=== PATIENT | male | born 1985 | race African-American/Black ===

== ENCOUNTER 2016-07-08 11:45 | Emergency (ER) | payer MEDICAID ==
[2016-07-08 11:56] VITALS: BP 144/92
[2016-07-08] MEDS ORDERED: IBUPROFEN 600 MG TABLET PO ONE (12:02)
--- NOTE | 2016-07-08 12:02 | ER Document Report ---
ED Medical Screen (RME) - General Stated Complaint: TOOTH PAIN Time seen by provider: 12:01 Mode of Arrival: Wheelchair Information source: Patient Notes: 31-year-old male presents to ED for left lower jaw tooth pain for the last 3 days. He states she's been taken Tylenol with no relief. States the pain is making him lightheaded so he is in a wheelchair. I have greeted and performed a rapid initial assessment of this patient. A comprehensive ED assessment and evaluation of the patient, analysis of test results and completion of medical decision making process will be conducted by an additional ED providers. TRAVEL OUTSIDE OF THE [place] IN LAST 30 DAYS: No - Related Data Allergies/Adverse Reactions: Penicillins Allergy (Intermediate, Verified 07/08/16 12:00) VOMITING lorazepam [From Ativan] Allergy (Verified 07/08/16 12:00) morphine [Morphine] Allergy (Verified 07/08/16 12:00) mustard [Mustard] Allergy (Verified 07/08/16 12:00) Past Medical History Pulmonary Medical History: Reports: Hx Asthma, Hx Bronchitis Denies: Hx Tuberculosis Neurological Medical History: Reports: Hx Migraine, Hx Seizures Past Surgical History: Reports: Hx Orthopedic Surgery - left knee fx and sternum repair - Immunizations Hx Diphtheria, Pertussis, Tetanus Vaccination: Yes Physical Exam - Vital signs Vitals: Temp Pulse Resp BP Pulse Ox 98.5 F 70 20 144/92 H 100 07/08/16 11:55 07/08/16 11:55 07/08/16 11:55 07/08/16 11:55 07/08/16 11:55 Course - Vital Signs Vital signs: Temp Pulse Resp BP Pulse Ox 98.5 F 70 20 144/92 H 100 07/08/16 11:55 07/08/16 11:55 07/08/16 11:55 07/08/16 11:55 07/08/16 11:55
== END 2016-07-08 13:28 | disposition left against medical advice (07) ==
LOC: ER 11:45
DX: R68.84 Jaw pain (principal); R42 Dizziness and giddiness; J45.909 Unspecified asthma, uncomplicated; Z88.0 Allergy status to penicillin; Z88.8 Allergy status to other drugs, medicaments and biological substances; Z88.5 Allergy status to narcotic agent; Z91.018 Allergy to other foods; Z53.20 Procedure and treatment not carried out because of patient's decision for unspecified reasons
CPT/HCPCS: 99281; J3490

== ENCOUNTER 2019-10-04 07:15 | Emergency (ER) | payer MEDICAID ==
[2019-10-04] MEDS ORDERED: ACETAMINOPHEN 325 MG TABLET PO ONE (09:18)
--- NOTE | 2019-10-04 10:00 | ER Document Report ---
Entered by UCHE EASLEY SCRIBE 10/04/19 0943 Acting as scribe for:ANNA GOMES MD ED General - General Chief Complaint: Facial Swelling Stated Complaint: FACIAL SWELLING Time Seen by Provider: 10/04/19 09:41 Mode of Arrival: Ambulatory Information source: Patient Notes: This 34-year-old male patient presents to the emergency department today with complaints of dental pain with associated facial swelling. Patient states he first noticed the pain yesterday and it has "progressed very rapidly". Patient has significant left-sided facial swelling. TRAVEL OUTSIDE OF THE [place] IN LAST 30 DAYS: No - Related Data Allergies/Adverse Reactions: Penicillins Allergy (Intermediate, Verified 07/08/16 12:00) VOMITING lorazepam [From Ativan] Allergy (Verified 07/08/16 12:00) morphine [Morphine] Allergy (Verified 07/08/16 12:00) mustard [Mustard] Allergy (Verified 07/08/16 12:00) Past Medical History - General Information source: Patient - Social History Smoking Status: Current Every Day Smoker Cigarette use (# per day): Yes Frequency of alcohol use: None Drug Abuse: Marijuana Lives with: Family Family History: Reviewed & Not Pertinent, Malignancy Pulmonary Medical History: Reports: Hx Asthma, Hx Bronchitis Neurological Medical History: Reports: Hx Migraine, Hx Seizures Past Surgical History: Reports: Hx Oral Surgery, Hx Orthopedic Surgery - left knee fx and sternum repair - Immunizations Hx Diphtheria, Pertussis, Tetanus Vaccination: Yes Review of Systems - Review of Systems Constitutional: No symptoms reported EENT: See HPI, Mouth pain, Mouth swelling, Dental problem Cardiovascular: No symptoms reported Respiratory: No symptoms reported Gastrointestinal: No symptoms reported Genitourinary: No symptoms reported Male Genitourinary: No symptoms reported Musculoskeletal: No symptoms reported Skin: No symptoms reported Hematologic/Lymphatic: No symptoms reported Neurological/Psychological: No symptoms reported -: Yes All other systems reviewed and negative Physical Exam - Vital signs Vitals: Temp Pulse Resp BP Pulse Ox 97.9 F 65 16 137/92 H 100 10/04/19 07:21 10/04/19 07:21 10/04/19 07:21 10/04/19 07:21 10/04/19 07:21 - General General appearance: Alert In distress: Mild - HEENT Head: Normocephalic, Atraumatic, Other - Left upper face swelling over the anterolateral maxillary region. Eyes: Normal Pupils: PERRL Mouth/Lips: Other - There is fluctuant gum swelling over the lateral left upper second premolar. The tooth itself is broken off well inside the gumline. Pharynx: Normal Neck: Normal - Respiratory Respiratory status: No respiratory distress - Cardiovascular Rhythm: Regular - Abdominal Inspection: Normal - Back Back: Normal - Extremities General upper extremity: Normal inspection General lower extremity: Normal inspection - Neurological Neuro grossly intact: Yes - Psychological Associated symptoms: Normal affect, Normal mood - Skin Skin Temperature: Warm Skin Moisture: Dry Skin Color: Normal Course - Re-evaluation Re-evalutation: 10/04/19 10:38 The abscess in the left upper gumline was incised with an 18-gauge needle and a foul-smelling purulent drainage resulted. - Vital Signs Vital signs: Temp Pulse Resp BP Pulse Ox 97.9 F 65 16 137/92 H 100 10/04/19 07:21 10/04/19 07:21 10/04/19 07:21 10/04/19 07:21 10/04/19 07:21 Discharge - Discharge Clinical Impression: Dental abscess Condition: Stable Disposition: HOME, SELF-CARE Additional Instructions: Dental Infection or Abscess You have an infection, perhaps an abscess (pus formation) of the gum around one of your teeth, which is probably decayed. If there is an abscess, it may drain on its own or it may need to be opened or lanced. Severe swelling or drainage around a tooth usually means a deep dental abscess which usually requires evaluation and treatment by a dentist or oral surgeon. Antibiotics may be prescribed while awaiting dental treatment. If you develop high fever with chills, worsening pain, or increasing swelling in the area, see a dentist or oral surgeon immediately or return to the Emergency Department immediately. You have an abscess in the gum above your left upper second premolar. The abscess wall was incised and drained pus. Do warm soaks to the face, and warm salt water rinses to your mouth frequently. Take the medications as prescribed. Take ibuprofen or Aleve for pain as needed. Follow-up with a dentist next week to evaluate your dental infection. RETURN TO THE EMERGENCY ROOM IF ANY NEW OR WORSENING SYMPTOMS. Prescriptions: Clindamycin HCl 300 mg PO QID #28 capsule I personally performed the services described in the documentation, reviewed and edited the documentation which was dictated to the scribe in my presence, and it accurately records my words and actions.
[2019-10-04] MEDS ORDERED: CLINDAMYCIN HCL 150 MG CAPSULE PO ONE (10:01)
[2019-10-04] MEDS ORDERED: OXYCODONE-ACETAMINOPHEN 5-325 MG TABLET PO ONE (10:01)
[2019-10-04 10:58] VITALS: BP 145/84
== END 2019-10-04 10:58 | disposition home or self-care (01) ==
LOC: ER 07:15
DX: K04.7 Periapical abscess without sinus (principal); K08.89 Other specified disorders of teeth and supporting structures; F17.210 Nicotine dependence, cigarettes, uncomplicated; J45.909 Unspecified asthma, uncomplicated; Z88.0 Allergy status to penicillin; Z88.8 Allergy status to other drugs, medicaments and biological substances; Z88.6 Allergy status to analgesic agent; Z88.5 Allergy status to narcotic agent; Z91.018 Allergy to other foods
CPT/HCPCS: 99283; 41800; J3490 ×2